=== PATIENT | female | born 1955 | race Caucasian/White ===

== ENCOUNTER → 2023-12-30 12:08 | Outpatient (REF) | payer MEDICARE, OTHER, SELFPAY | LOC: HWRAD 12:08 | PROVIDERS: ATTENDING PHYSICIAN Physical Medicine & Rehabilitation; FAMILY PHYSICIAN Internal Medicine | DX: M25.552 Pain in left hip (principal) | CPT/HCPCS: 73502 ==

== ENCOUNTER → 2024-01-07 12:28 | Outpatient (REF) | payer MEDICARE, OTHER, SELFPAY | LOC: HWCARD 12:28 | PROVIDERS: ATTENDING PHYSICIAN Physical Medicine & Rehabilitation; FAMILY PHYSICIAN Internal Medicine | DX: Z01.818 Encounter for other preprocedural examination (principal) | CPT/HCPCS: 93005 ==

== ENCOUNTER → 2024-07-18 13:03 | Day surgery (SDC) | payer MEDICARE, OTHER, SELFPAY ==
[2024-07-18 14:03] LABS: Hematocrit 35.8 % (37.0-47.0); Hemoglobin 12.3 g/dL (12.0-16.0); Mean Corp Hgb Conc. 34.4 g/dL (33.0-37.0); Mean Corpuscular Hgb 34.3 pg (27.0-31.0); Mean Corpuscular Volume 99.7 fL (81.0-99.0); Mean Platelet Volume 12.2 fL (7.4-10.4); Platelet Count 179 10^3/uL (130-400); Red Blood Cell Count 3.59 10^6/uL (4.20-5.40); Red Cell Dist. Width 11.6 % (11.5-14.5)
[2024-07-18 14:42] LABS: ALT (SGPT) 17 U/L (0-35); AST (SGOT) 21 U/L (14-36); Albumin 4.8 g/dl (3.5-5.0); Alkaline Phosphatase 50 U/L (38-126); Blood Urea Nitrogen 12 mg/dl (7-17); Calcium 9.7 mg/dl (8.4-10.2); Carbon Dioxide 31 mmol/L (22-30); Chloride 95 mmol/L (98-107); Glucose 124 mg/dl (70-99); Potassium 3.7 mmol/L (3.5-5.1); Sodium 137 mmol/L (135-145); Total Bilirubin 0.4 mg/dl (0.2-1.3); Total Protein 6.9 g/dl (6.3-8.2); eGFR > 60.00
== END ==
LOC: SDSPAT 13:03
PROVIDERS: ATTENDING PHYSICIAN Orthopaedic Surgery Orthopaedic Surgery of the Spine; FAMILY PHYSICIAN Internal Medicine
DX: Z01.810 Encounter for preprocedural cardiovascular examination (principal); Z01.812 Encounter for preprocedural laboratory examination
CPT/HCPCS: 93005; 36415; 80053; 85027; 87070

== ENCOUNTER 2024-07-26 06:10 | Day surgery (SDC) | payer MEDICARE, OTHER, SELFPAY ==
[2024-07-18 13:18] VITALS: BMI 19.4
[2024-07-20 10:03] VITALS: BMI 19.4
[2024-07-26] VITALS (25 sets, daily range): BP systolic 101–125; BP diastolic 51–78
[2024-07-26] MEDS: SKELAXIN 800 MG PO ×2 (08:33→15:18)
[2024-07-26] MEDS: TYLENOL 1000 MG PO ×3 (08:33→22:06)
[2024-07-26] MEDS: CELEBREX 200 MG PO (08:33)
[2024-07-26] MEDS: NORMOSOL-R/PLASMALYTE-A 1000 IV ×2 (08:50→22:05)
--- NOTE | 2024-07-26 12:26 | W.DS.TRANS ---
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
-
Discharge Instructions:
Sleep Apnea Risk Low
Discharge Diagnosis/Procedures L5-S1 [id number] Dr. Soto 07/26/24
Diet Regular
Activity No strenuous activity
Driving Restrictions No driving
Instructions:
Stand-Alone Forms: [facility]
Changes to Home Medications: Yes
Discharge Medications:
DC Medications w/original date entered in [employer]
Xidra 1 drp BOTH EYES BID 07/17/24
alprazolam 0.25 mg tablet (Xanax) 0.25 mg PO TID PRN anxiety 07/17/24
amlodipine 10 mg tablet 10 mg PO QPM 07/17/24
bimatoprost 0.01 % eye drops (Lumigan) 1 drp RIGHT EYE QPM 07/17/24
brimonidine 0.2 % eye drops 1 drp RIGHT EYE BID 07/17/24
denosumab 60 mg/mL subcutaneous syringe (Prolia) 60 mg SC [id number] 07/17/24
dorzolamide 22.3 mg-timolol 6.8 mg/mL eye drops (Cosopt) 1 drp RIGHT EYE BID 07/17/24
duloxetine 30 mg capsule,delayed release 30 mg PO DAILY 07/17/24
duloxetine 30 mg capsule,delayed release 60 mg PO DAILY 07/17/24
famotidine 40 mg tablet 40 mg PO BID 07/17/24
gabapentin 100 mg capsule 100 mg PO . 5 TIMES A DAY 07/17/24
hydrochlorothiazide 25 mg tablet 12.5 mg PO DAILY 07/17/24
levothyroxine 112 mcg tablet 112 mcg PO DAILY 07/17/24
pitavastatin calcium 1 mg tablet (Livalo) 1 mg PO SUMOWEFR 07/17/24
trazodone 50 mg tablet 50 mg PO HS 07/17/24
Saccharomyces boulardii 250 mg capsule (Florastor) 250 mg PO BID #1 cap 07/26/24
acetaminophen 325 mg tablet (Tylenol) 650 mg (2 x 325 mg) PO QID #1 tab 07/26/24
clindamycin 300mg qid #20
cyclobenzaprine 5 mg tablet 5 mg PO BID muscle pain/sleep #30 tabs 07/26/24
dexamethasone 4 mg tablet 4 mg PO BID inflammation #6 tabs 07/26/24
docusate sodium 100 mg capsule (Colace) 100 mg PO BID stool softner #1 cap 07/26/24
magnesium hydroxide 400 mg/5 mL oral suspension (Milk of Magnesia) 30 ml PO HS PRN Constipation #1 mL 07/26/24
ondansetron 4 mg disintegrating tablet 4 mg PO Q6H PRN n/v #20 tabs 07/26/24
oxycodone 5 mg tablet 5 mg PO Q6H PRN 1 tab moderate pain, 2 tabs severe pain #30 tabs 07/26/24
sennosides 8.6 mg tablet (Senokot) 17.2 mg (2 x 8.6 mg) PO BID laxative #2 tabs 07/26/24
Home Medication Changes
Saccharomyces boulardii 250 mg capsule (Florastor) 250 mg PO BID #1 cap 07/26/24
acetaminophen 325 mg tablet (Tylenol) 650 mg (2 x 325 mg) PO QID #1 tab 07/26/24
clindamycin 300mg qid #20
cyclobenzaprine 5 mg tablet 5 mg PO BID muscle pain/sleep #30 tabs 07/26/24
dexamethasone 4 mg tablet 4 mg PO BID inflammation #6 tabs 07/26/24
docusate sodium 100 mg capsule (Colace) 100 mg PO BID stool softner #1 cap 07/26/24
magnesium hydroxide 400 mg/5 mL oral suspension (Milk of Magnesia) 30 ml PO HS PRN Constipation #1 mL 07/26/24
ondansetron 4 mg disintegrating tablet 4 mg PO Q6H PRN n/v #20 tabs 07/26/24
oxycodone 5 mg tablet 5 mg PO Q6H PRN 1 tab moderate pain, 2 tabs severe pain #30 tabs 07/26/24
sennosides 8.6 mg tablet (Senokot) 17.2 mg (2 x 8.6 mg) PO BID laxative #2 tabs 07/26/24
Pending Results: No
[2024-07-26] MEDS: DILAUDID 0.5 MG IV (13:12)
[2024-07-26] MEDS: CYMBALTA DELAYED RELEASE PO ×2 (15:12)
[2024-07-26] MEDS: XANAX PO (15:13)
[2024-07-26] MEDS: SYNTHROID PO (15:13)
[2024-07-26] MEDS: ULTRAM 50 MG PO ×3 (15:16→22:07)
[2024-07-26] MEDS: XALATAN OPHTHALMIC SOLUTION 1 DROP RIGHT EYE (17:39)
[2024-07-26] MEDS: CLEOCIN 50 IV (17:41)
--- NOTE | 2024-07-26 21:15 | PTCARENOTE ---
Pt arrived at 1954 from PACU. Pt AAOX3. VSS. Pt on 1L NC. Neurovascular checks WNL. IVF infusing. surgical dressing c/d/i. oriented to room and call doyle. bed locked and in lowest position.
[2024-07-26] MEDS: ALPHAGAN 0.2% EYE DROPS 1 DROP RIGHT EYE (22:04)
[2024-07-26] MEDS: NORMOSOL-R/PLASMALYTE-A IV ×2 (22:04→23:47)
[2024-07-26] MEDS: COLACE PO (22:05)
[2024-07-26] MEDS: COSOPT EYE DROPS 1 DROP RIGHT EYE (22:05)
[2024-07-26] MEDS: PEPCID 40 MG PO (22:07)
[2024-07-26] MEDS: LYRICA 75 MG PO (22:07)
[2024-07-26] MEDS: DESYREL 50 MG PO (23:23)
[2024-07-26] MEDS: XANAX 0.25 MG PO (23:23)
[2024-07-27] MEDS: SKELAXIN 800 MG PO ×2 (00:09→08:49)
[2024-07-27] MEDS: CLEOCIN 50 IV (02:24)
[2024-07-27] MEDS: ULTRAM PO ×3 (02:27→08:47)
[2024-07-27] MEDS: TYLENOL PO (02:27)
[2024-07-27 03:10] VITALS: BP 85/46
[2024-07-27 04:04] VITALS: BP 90/51
[2024-07-27] MEDS: SYNTHROID 112 MCG PO (05:33)
[2024-07-27 05:35] VITALS: BP 94/55
[2024-07-27 06:49] LABS: Hematocrit 31.5 % (37.0-47.0)
[2024-07-27 07:05] VITALS: BP 99/61
[2024-07-27 07:24] LABS: Blood Urea Nitrogen 8 mg/dl (7-17); Calcium 7.4 mg/dl (8.4-10.2); Carbon Dioxide 29 mmol/L (22-30); Chloride 100 mmol/L (98-107); Estimated Creatinine Clearance 63 ml/min; Glucose 104 mg/dl (70-99); Sodium 138 mmol/L (135-145); eGFR > 60.00
--- NOTE | 2024-07-27 07:53 | W.DS.TRANS ---
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
-
Discharge Instructions:
Sleep Apnea Risk Low
Discharge Diagnosis/Procedures L5-S1 [id number] Dr. Soto 07/26/24
Diet Regular
Activity No strenuous activity
Driving Restrictions No driving
Instructions:
Stand-Alone Forms: [facility]
Changes to Home Medications: No
Discharge Medications:
DC Medications w/original date entered in [employer]
Xidra 1 drp BOTH EYES BID 07/17/24
alprazolam 0.25 mg tablet (Xanax) 0.25 mg PO TID PRN anxiety 07/17/24
amlodipine 10 mg tablet 10 mg PO QPM 07/17/24
bimatoprost 0.01 % eye drops (Lumigan) 1 drp RIGHT EYE QPM 07/17/24
brimonidine 0.2 % eye drops 1 drp RIGHT EYE BID 07/17/24
denosumab 60 mg/mL subcutaneous syringe (Prolia) 60 mg SC [id number] 07/17/24
dorzolamide 22.3 mg-timolol 6.8 mg/mL eye drops (Cosopt) 1 drp RIGHT EYE BID 07/17/24
duloxetine 30 mg capsule,delayed release 30 mg PO DAILY 07/17/24
duloxetine 30 mg capsule,delayed release 60 mg PO DAILY 07/17/24
famotidine 40 mg tablet 40 mg PO BID 07/17/24
gabapentin 100 mg capsule 100 mg PO . 5 TIMES A DAY 07/17/24
hydrochlorothiazide 25 mg tablet 12.5 mg PO DAILY 07/17/24
levothyroxine 112 mcg tablet 112 mcg PO DAILY 07/17/24
pitavastatin calcium 1 mg tablet (Livalo) 1 mg PO SUMOWEFR 07/17/24
trazodone 50 mg tablet 50 mg PO HS 07/17/24
Saccharomyces boulardii 250 mg capsule (Florastor) 250 mg PO BID #1 cap 07/26/24
acetaminophen 325 mg tablet (Tylenol) 650 mg (2 x 325 mg) PO QID #1 tab 07/26/24
clindamycin HCl 300 mg capsule 300 mg PO QID Infection #20 caps 07/26/24
cyclobenzaprine 5 mg tablet 5 mg PO BID muscle pain/sleep #30 tabs 07/26/24
dexamethasone 4 mg tablet 4 mg PO BID inflammation #6 tabs 07/26/24
docusate sodium 100 mg capsule (Colace) 100 mg PO BID stool softner #1 cap 07/26/24
magnesium hydroxide 400 mg/5 mL oral suspension (Milk of Magnesia) 30 ml PO HS PRN Constipation #1 mL 07/26/24
ondansetron 4 mg disintegrating tablet 4 mg PO Q6H PRN n/v #20 tabs 07/26/24
oxycodone 5 mg tablet 5 mg PO Q6H PRN 1 tab moderate pain, 2 tabs severe pain #30 tabs 07/26/24
sennosides 8.6 mg tablet (Senokot) 17.2 mg (2 x 8.6 mg) PO BID laxative #2 tabs 07/26/24
Home Medication Changes
Pending Results: No
--- NOTE | 2024-07-27 07:53 | W.PN.SP ---
Today's Communication / Plan
-
s/p lami fusion
PT
D/c today
Subjective / Objective
Subjective Data
Pt doing well
LEg seems better
Denies weakness
Objective Data
Vital Signs
Temp Pulse Resp BP Pulse Ox
97.9 F 89 16 99/61 96
07/27/24 07:05 07/27/24 07:05 07/27/24 07:05 07/27/24 07:05 07/27/24 07:05
Intake and Output
07/26/24 07/27/24 07/28/24
06:59 06:59 06:59
Intake Total 2079 / 2079
Output Total 425 / 425
Balance 1655 / 1655
Intake:
Oral fluids 480 / 480
IV fluids (Total) 1550 / 1550
Normosol 350 / 350
IV piggybacks 50 / 50
Output:
Urine, Voided 425 / 425
Other:
Number of approximated MODERATE 1
amounts of urine
Number of approximated LARGE 1
amounts of urine
Lab Data
07/27/24 05:21
07/27/24 05:21
Physical Exam
-
Stable exam
[2024-07-27] MEDS: TYLENOL 1000 MG PO (08:47)
[2024-07-27] MEDS: XANAX PO (08:47)
[2024-07-27] MEDS: COLACE 100 MG PO (08:47)
[2024-07-27] MEDS: ALPHAGAN 0.2% EYE DROPS 1 DROP RIGHT EYE (08:48)
[2024-07-27] MEDS: COSOPT EYE DROPS 1 DROP RIGHT EYE (08:48)
[2024-07-27] MEDS: CYMBALTA DELAYED RELEASE 30 MG PO (08:48)
[2024-07-27] MEDS: LYRICA 75 MG PO (08:49)
[2024-07-27] MEDS: PEPCID 40 MG PO (08:49)
[2024-07-27] MEDS: NORMOSOL-R/PLASMALYTE-A 1000 IV (08:49)
[2024-07-27] MEDS: CYMBALTA DELAYED RELEASE 60 MG PO (08:49)
[2024-07-27 10:07] VITALS: BP 110/63; PULSE 93; O2SAT 95
--- NOTE | 2024-07-27 10:44 | CM ---
Met with pt at bedside
Pt reports she lives with her in a 2 story home; 2 steps to enter, 12 steps to 2nd fl
Independent at baseline, no devices with ambulation, drives
DME - none
SNF - no past [facility]
HH - Has had in past - unsure of agency
Has ride at discharge
PCP - Celina Yu
Pharm - [facility]
Plan -anticipate home no needs
--- NOTE | 2024-07-27 10:57 | W.PN.ORTHO ---
Today's Communication / Plan
-
d/c
Assessment
.
Distal Motor Intact: Yes
Dressing:
Clean, dry and intact.
Assessment:
Hypotension-currently asx-+ Midodrine x 1 dose and 250ml NSS IVF bolus to avoid home orthostasis
Plan
.
Surgery / Date: L5-S1 [id number] Dr. Soto 07/26/24
Activity:
Out of bed.
PT/OT
Discharge Plan: Home
Subjective
.
.:
Patient resting comfortably.
Vital Signs and Labs
.
Vital Signs and Labs:
Lab Results
07/27/24 05:21
07/27/24 05:21
Temp Pulse Resp BP Pulse Ox
97.9 F 89 16 99/61 96
07/27/24 07:05 07/27/24 07:05 07/27/24 07:05 07/27/24 07:05 07/27/24 07:05
Physical Exam
-
HEENT: No pallor, cyanosis, or jaundice. Throat clear.
NECK: Supple. No JVD.
RESPIRATORY: Lungs clear to auscultation.
CVS: S1, S2 normal. RRR.� No murmur, rub or gallop.
ABDOMEN: Soft, non-tender. No distension. BS+/normal.
EXTREMITIES: strength equal, no calf pain with palpation
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 No focal deficits. 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
[2024-07-27] MEDS: ProAmatine 5 MG PO (11:09)
[2024-07-27] MEDS: NSS 250 IV (11:09)
[2024-07-27 11:30] VITALS: BP 104/66
[2024-07-27 20:49] LABS: Hepatitis C Antibody Negative (Negative)
== END 2024-07-27 13:54 | disposition home or self-care (01) ==
LOC: SDS 06:10
PROVIDERS: Physician Assistant Medical; ATTENDING PHYSICIAN Orthopaedic Surgery Orthopaedic Surgery of the Spine
DX: M48.062 Spinal stenosis, lumbar region with neurogenic claudication (principal); M48.07 Spinal stenosis, lumbosacral region; M43.17 Spondylolisthesis, lumbosacral region; Z87.891 Personal history of nicotine dependence
CPT/HCPCS: 22612; 63047; C1713; 72100; 76000; 80048; 85014; 85018; 86803; 97116; 97162; 97166; 97530; 97535

== ENCOUNTER → 2024-12-22 12:50 | Outpatient (REF) | payer MEDICARE, OTHER, SELFPAY | LOC: HWCARD 12:50 | PROVIDERS: ATTENDING PHYSICIAN Physical Medicine & Rehabilitation; FAMILY PHYSICIAN Internal Medicine | DX: Z01.818 Encounter for other preprocedural examination (principal) | CPT/HCPCS: 93005 ==